=== PATIENT | male | born 1940 | race Caucasian/White ===

== ENCOUNTER → 2019-04-19 09:53 | Outpatient (POV) | payer MEDICARE, SELFPAY | PROVIDERS: Visit Provider Dermatology | DX: Z00.00 Encounter for general adult medical examination without abnormal findings (principal) ==

== ENCOUNTER → 2019-05-10 10:07 | Outpatient (POV) | payer MEDICARE, SELFPAY | PROVIDERS: Visit Provider Dermatology | DX: Z00.00 Encounter for general adult medical examination without abnormal findings (principal) ==

== ENCOUNTER → 2019-07-05 13:14 | Outpatient (POV) | payer MEDICARE, OTHER, SELFPAY | PROVIDERS: PCP Dermatology; Visit Provider Dermatology | DX: Z00.00 Encounter for general adult medical examination without abnormal findings (principal) ==

== ENCOUNTER 2021-06-20 09:45 | Emergency (ER) | payer MEDICARE, SELFPAY ==
[2021-06-20 09:46] VITALS: BP 146/86; PULSE 103; RESP 16; TEMP 36.5; O2SAT 98; BMI 21.1
--- NOTE | 2021-06-20 09:57 | CT_ITS ---
FINAL REPORT CLINICAL HISTORY: constipation FINDINGS: Technique: Axial images through the abdomen and pelvis were performed by computed tomography. This study was performed with techniques to keep radiation doses as low as reasonably achievable (ALARA). Individualized dose reduction techniques using automated exposure control or adjustment of mA and/or kV according to the patient's size were employed. Abdomen: Motion artifact is identified on many of the images. There is mild bibasilar scar or atelectasis. The gallbladder is not well-seen. The liver is normal in size and attenuation. The spleen is unremarkable. The pancreas is normal. The adrenals are normal. The aorta is normal in caliber. There are bilateral low-attenuation renal masses which cannot be accurately characterized without contrast, likely represent cysts. There are several right renal stones measuring up to 8 mm. No left renal stones are identified. There is moderate left hydronephrosis and hydroureter secondary to a 2 mm left UVJ stone. Note is made of moderate vascular calcification. Pelvis: The appendix is not identified. There is a large amount of stool throughout the colon. Multiple diverticula are seen in the sigmoid colon. The urinary bladder is unremarkable. There is no free fluid or adenopathy. IMPRESSION: Moderate left hydronephrosis and hydroureter secondary to an obstructing stone in the left UVJ. Right renal stones. Reviewed, Interpreted and Dictated by Dale Degroot III, MD Transcribed by Raeann Isaac Authenticated by Dale Degroot III, MD on 06/20/2021 10:50:58 AM [facility]
[2021-06-20 10:30] LABS: Basophils # 0.1 K/mm3 (0-0.2); Basophils % 0.6 % (0.1-2.0); Eosinophils # 0.1 K/mm3 (0.0-0.4); Hematocrit 39.9 % (42.0-52.0); Hemoglobin 12.4 g/dL (14.1-18.0); Lymphocytes # 1.2 K/mm3 (0.7-4.5); Lymphocytes % 11.2 % (10-50); Mean Corpuscular HGB Conc 31.1 g/dL (31.8-35.4); Mean Corpuscular Hemoglobin 32.8 pg (27.0-31.2); Mean Corpuscular Volume 105.6 fl (80-94); Mean Platelet Volume 8.3 fl (7.4-10.4); Monocytes # 0.8 K/mm3 (0.1-1.0); Monocytes % 7.8 % (1.7-9.3); Neutrophils # 8.3 K/mm3 (1.8-7.8); Neutrophils % 79.5 % (37.0-80.0); Platelet Count 349 K/mm3 (142-424); Red Blood Count 3.78 M/mm3 (4.60-6.20); Red Cell Distribution Width 13.1 % (11.5-17.5); White Blood Count 10.4 K/mm3 (4.8-10.8)
[2021-06-20 10:36] LABS: Chloride 99 mmol/L (98-107); Potassium 4.5 mmoL/L (3.5-5.1); Sodium 135 mmol/L (136-145)
[2021-06-20 10:38] LABS: Blood Urea Nitrogen 35 mg/dl (9-20); Creatinine Clearance Estimated 29 mL/min (50-200); Estimated Glomerular Filt Rate 31 ml/min (>60); GFR (African American) 37 ML/MIN (>60)
[2021-06-20 10:39] LABS: Alanine Aminotransferase 19 U/L (12-78); Albumin/Globulin Ratio 1.1 (1.1-1.8); Alkaline Phosphatase 107 U/L (38-126); Anion Gap 13.5 mEq/L (5-15); Aspartate Amino Transferase 27 U/L (17-59); Bilirubin,Total 0.7 mg/dl (0.2-1.3); Calcium 8.4 mg/dl (8.4-10.2); Carbon Dioxide 27 mmol/L (22.0-30.0); Globulin 3.7 g/dL (1.3-3.2); Glucose 104 mg/dl (74-100); Lipase 37 U/L (23-300); Total Protein,Serum 7.7 g/dl (6.3-8.2)
--- NOTE | 2021-06-20 10:51 | HMH.EDABDPAI ---
ED Disposition Clinical Impression: Kidney stone on left side Constipation Qualifiers: Constipation type: unspecified constipation type Qualified Code(s): K59.00 - Constipation, unspecified Disposition: Home, Self-Care Condition on Discharge: Good Instructions: DI for Kidney Stones Prescriptions: Hydrocod/Acet 5/325 mg [[place] 5/325mg tablet] 1 tab PO Q6HP PRN #7 tab PRN Reason: Moderate To Severe Pain Transmission Status: Sent to [facility] Docusate Sodium [Colace] 100 mg PO BID #20 cap Transmission Status: Pending to [facility] Tamsulosin HCl [Flomax 0.4mg capsule] 0.4 mg PO DAILY #10 cap Transmission Status: Pending to [facility] Referrals: Golden Bruce MD [Primary Care Provider] - - Critical Care Critical Care Time: No Attestation: On 06/20/21, the high probability of a clinically significant, sudden or life threatening deterioration of the following system(s) required my full and direct attention, intervention and personal management. The time I documented below is in addition to time spent performing reported procedures but includes the following listed in this critical care notation. Medical Decision Making - Medical Records Medical records reviewed: Yes: I reviewed the patient's medical records. - Brent Inquiry Pt receiving controlled substance: No Vital Signs: 06/20/21 09:46 06/20/21 11:58 Temperature 97.7 F Temperature Source Oral Pulse Rate 75 Pulse Rate [Radial] 103 H Respiratory Rate 16 Blood Pressure 159/89 H Blood Pressure [Right Arm] 146/86 H Blood Pressure Mean 109 Blood Pressure Mean [Right Arm] 106 Blood Pressure Position [Right Arm] Sitting 02 Sat by Pulse Oximetry 98 96 Oxygen Delivery Method Room Air Room Air - Lab Data Lab Results 06/20/21 10:15: WBC 10.4, RBC 3.78 L, Hgb 12.4 L, Hct 39.9 L, MCV 105.6 H, MCH 32.8 H, MCHC 31.1 L, RDW 13.1, Plt Count 349, MPV 8.3, Neut % (Auto) 79.5, Lymph % (Auto) 11.2, [place] % (Auto) 7.8, Eos % (Auto) 1.0, Baso % (Auto) 0.6, Neut # (Auto) 8.3 H, Lymph # (Auto) 1.2, [place] # (Auto) 0.8, Eos # (Auto) 0.1, Baso # (Auto) 0.1 06/20/21 10:15: Sodium 135 L, Potassium 4.5, Chloride 99, Carbon Dioxide 27, Anion Gap 13.5, BUN 35 H, Creatinine 2.10 H, Estimated Creat Clear 29, Estimated GFR 31 L, Est GFR ( Amer) 37 L, Glucose 104 H, Calcium 8.4, Total Bilirubin 0.7, AST 27, ALT 19, Alkaline Phosphatase 107, Total Protein 7.7, Albumin 4.0, Globulin 3.7 H, Albumin/Globulin Ratio 1.1, Lipase 37 06/20/21 11:20: Urine Color Yellow, Urine Appearance Clear, Urine pH 5.5, Ur Specific [place] 1.010, Urine Protein Negative, Urine Glucose (UA) Negative, Urine Ketones Negative, Urine Blood 1+, Urine Nitrate Negative, Urine Bilirubin Negative, Urine Urobilinogen 0.2, Ur Leukocyte Esterase Negative, Urine RBC Occasional, Urine WBC 3-5, Ur Squamous Epith Cells Occasional, Urine Bacteria Trace Result diagrams: 06/20/21 10:15 06/20/21 10:15 Orders (Tests/Meds): ED MEDICATIONS Discontinued Medications Generic Name Dose Route Start Last Admin Trade Name Freq PRN Reason Stop Dose Admin Sodium Chloride 1,000 mls @ 999 mls/hr 06/20/21 10:00 06/20/21 10:14 Sod Chlor 0.9% 1000ml Bag IV 06/20/21 11:00 999 mls/hr .Q1H1M NAYA Administration - CT Data CT Scan: Abdomen, Pelvis Time Received: 12:[address] Reviewed: Yes: I have reviewed the patient's CT results, I have viewed the radiologist's interpretation Findings Narrative: IMPRESSION: Moderate left hydronephrosis and hydroureter secondary to an obstructing stone in the left UVJ. Right renal stones. - Reevaluation(s) Time: 12:50 Reevaluation #1: On reevaluation, the patient is feeling much better. He does have evidence of a 2 mm kidney stone on the left side. Also some slight elevation in kidney function. We did provide fluids here. I explained to the patient that he needs to increase his oral intake. He will be discharged wit
[2021-06-20 11:31] LABS: Microscopic, Urine URINE MICROSCOPIC (MICROSCOPIC)
[2021-06-20 11:34] LABS: Appearance,Urine CLEAR (Clear); Bilirubin,Urine Negative (Negative); Blood, Urine 1+ (Negative); Color,Urine YELLOW (Yellow); Glucose,Urine (UA) Negative (Negative); Ketones,Urine Negative (Negative); Leukocyte Esterase,Urine Negative (Negative); Nitrate,Urine Negative (Negative); PH,Urine 5.5 (5.0-8.5); Protein,Urine Negative (Negative); Urobilinogen,Urine 0.2 EU/dl (0.2)
[2021-06-20 11:49] LABS: Bacteria,Urine Trace /lpf; RBC,Urine Occasional #/hpf (0-3); Squamous Epithelial Cell,Urine Occasional #/hpf (0-5)
--- NOTE | 2021-06-20 11:50 | PC.NURSE ---
updated pt family at in lobby at this time per their request
[2021-06-20 11:58] VITALS: BP 159/89; PULSE 75; O2SAT 96
[2021-06-20 12:15] VITALS: BP 147/76; PULSE 74; RESP 16
[2021-06-20 12:45] VITALS: BP 153/72; PULSE 68; RESP 16; O2SAT 99
[2021-06-20 14:46] VITALS: BP 135/74; PULSE 71; RESP 16; TEMP 36.6; O2SAT 96
== END 2021-06-20 14:48 | disposition home or self-care (01) ==
PROVIDERS: Emergency Provider Emergency Medicine; PCP Family Medicine
DX: N20.0 Calculus of kidney (principal); K59.00 Constipation, unspecified; F17.210 Nicotine dependence, cigarettes, uncomplicated; Z79.1 Long term (current) use of non-steroidal anti-inflammatories (NSAID); Z79.899 Other long term (current) drug therapy; Z88.7 Allergy status to serum and vaccine; Z85.828 Personal history of other malignant neoplasm of skin
CPT/HCPCS: 74176; 80053; 81001; 83690; 85025; 96361; 96365; 99284

== ENCOUNTER 2023-01-04 17:34 | Emergency (ER) | payer MEDICARE, SELFPAY ==
[2023-01-04] VITALS (7 sets, daily range): BP systolic 154–177; BP diastolic 61–80; PULSE 65–84; RESP 16–18; TEMP 36.6; O2SAT 98–99; BMI 19.8
--- NOTE | 2023-01-04 18:03 | HMH.EDGENADL ---
Discharge Plan Disposition Patient Disposition: Home, Self-Care Prescriptions Prescriptions: No Action hydrocodone-acetaminophen 1 TAB tablet 1 tab PO Q6HP PRN (Reason: Moderate To Severe Pain) Qty: 7 0RF tamsulosin 0.4 MG capsule 0.4 mg PO DAILY Qty: 10 0RF docusate sodium 100 MG capsule 100 mg PO BID Qty: 20 0RF Referrals Follow up/Referrals: Janet Arzola APRN [Primary Care Provider] - See instructions Activity Restrictions/Add. Instructions Additional Instructions/Restrictions: Turn with any other concerns. No evidence of any emergent medical condition electrolyte abnormality or renal failure secondary to dehydration today. Please push fluids by mouth at home. Clinical Impressions Clinical Impression: Dehydration Discharge ED Provider: Rohan Grover General Adult HPI General Chief complaint: Weakness Stated complaint: Weakness Time Seen by Provider: 01/04/23 17:56 History of Present Illness HPI narrative: Patient is an 82-year-old male presenting today with his sister for concern for dehydration. They state that a friend who is visiting him who is a nurse told him that he looked dehydrated. He has not had any nausea vomiting diarrhea no changes in p.o. intake but states he chronically takes in very small amounts of water. No changes in his urine output is still having good urine output. His his extremities are always cool and dry. Related Data Previous Rx's Medication Instructions Recorded docusate sodium 100 mg capsule 100 mg PO BID #20 caps 06/20/21 hydrocodone 5 mg-acetaminophen 325 1 tab PO Q6HP PRN Moderate To 06/20/21 mg tablet Severe Pain #7 tabs tamsulosin 0.4 mg capsule 0.4 mg PO DAILY #10 caps 06/20/21 Allergies Allergy/AdvReac Type Severity Reaction Status Date / Time Tetanus Vaccines and Toxoid Allergy Verified 01/14/21 11:52 [facility] Disclaimer: The information contained in this section may have been updated after the patient was seen, as this information can be updated by other users. Social History Smoking Status: Current every day smoker tobacco type: cigarettes packs per day: 1 second hand exposure: No alcohol intake: never current occupational status: retired Travel in the last 8 weeks: None housing: house current occupational exposures/hazards: No ROS Obtained: Yes All systems reviewed & no additional complaints except as documented Physical Exam General General appearance: alert Respiratory Respiratory exam: Present normal lung sounds bilaterally Cardiovascular Cardiovascular exam: Present other (Poor skin turgor delayed capillary refill mucous membranes are dry) Neurological Exam Neurological exam: Present alert and oriented X3 Medical Decision Making Brent Inquiry Pt receiving controlled substance: No Vital Signs: 01/04/23 17:36 01/04/23 17:43 01/04/23 18:01 Temperature 98 F Temperature Source Oral Pulse Rate 74 78 Pulse Rate [Right] 84 Respiratory Rate 17 16 17 Blood Pressure 162/80 H 155/61 H Blood Pressure [Right Arm] 162/80 H Blood Pressure Mean 102 92 Blood Pressure Mean [Right Arm] 107 Blood Pressure Source [Right Arm] Automatic Cuff Blood Pressure Position [Right Arm] Sitting 02 Sat by Pulse Oximetry 99 99 99 Oxygen Delivery Method Room Air 01/04/23 18:30 01/04/23 19:02 01/04/23 19:31 Temperature Temperature Source Pulse Rate 65 74 67 Pulse Rate [Right] Respiratory Rate 16 16 Blood Pressure 159/73 H 177/78 H 154/67 H Blood Pressure [Right Arm] Blood Pressure Mean 91 94 96 Blood Pressure Mean [Right Arm] Blood Pressure Source [Right Arm] Blood Pressure Position [Right Arm] 02 Sat by Pulse Oximetry 99 98 98 Oxygen Delivery Method Room Air Lab Data Lab results reviewed: Yes I reviewed the patient's lab results. Lab Results 01/04/23 18:27: WBC 6.7, RBC 4.49 L, Hgb 13.9 L, Hct 45.7, MCV 101.8 H, MCH 31.0, MCHC 30.4 L, RDW 13.5, Plt Count 2
[2023-01-04 18:36] LABS: Basophils % 0.6 % (0.1-2.0); Eosinophils # 0.1 K/mm3 (0.0-0.4); Eosinophils % 1.8 % (0.1-12.0); Hematocrit 45.7 % (42.0-52.0); Hemoglobin 13.9 g/dL (14.1-18.0); Lymphocytes # 1.1 K/mm3 (0.7-4.5); Lymphocytes % 15.9 % (10-50); Mean Corpuscular HGB Conc 30.4 g/dL (31.8-35.4); Mean Corpuscular Volume 101.8 fl (80-94); Mean Platelet Volume 7.8 fl (7.4-10.4); Monocytes # 0.5 K/mm3 (0.1-1.0); Neutrophils % 74.7 % (37.0-80.0); Platelet Count 206 K/mm3 (142-424); Red Blood Count 4.49 M/mm3 (4.60-6.20); Red Cell Distribution Width 13.5 % (11.5-17.5); White Blood Count 6.7 K/mm3 (4.8-10.8)
[2023-01-04 18:41] LABS: Chloride 104 mmol/L (98-107); Sodium 142 mmol/L (136-145)
[2023-01-04 18:42] LABS: Potassium 4.6 mmoL/L (3.5-5.1)
[2023-01-04 18:44] LABS: Alanine Aminotransferase 24 U/L (12-78); Alkaline Phosphatase 92 U/L (38-126); Aspartate Amino Transferase 33 U/L (17-59); Bilirubin,Total 0.5 mg/dl (0.2-1.3); Blood Urea Nitrogen 27 mg/dl (9-20); Creatinine Clearance Estimated 55 mL/min (50-200); Estimated Glomerular Filt Rate 72 ml/min (>60); GFR (African American) 87 ML/MIN (>60)
[2023-01-04 18:45] LABS: Albumin Level 4.1 g/dl (3.5-5.0); Albumin/Globulin Ratio 1.1 (1.1-1.8); Anion Gap 14.6 mEq/L (5-15); Calcium 9.3 mg/dl (8.4-10.2); Carbon Dioxide 28 mmol/L (22.0-30.0); Globulin 3.9 g/dL (1.3-3.2); Glucose 92 mg/dl (74-100)
== END 2023-01-04 20:09 | disposition home or self-care (01) ==
PROVIDERS: Emergency Provider Student in an Organized Health Care Education/Training Program; PCP Nurse Practitioner Family
DX: E86.0 Dehydration (principal); R53.1 Weakness; F17.210 Nicotine dependence, cigarettes, uncomplicated
CPT/HCPCS: 36415; 80053; 85025; 99284

== ENCOUNTER 2023-01-21 10:37 | Emergency (ER) | payer MEDICARE, SELFPAY ==
[2023-01-21 11:00] VITALS: BP 112/67; PULSE 89; RESP 18; TEMP 36.6; O2SAT 98; BMI 15.0
--- NOTE | 2023-01-21 11:12 | EXP.UTC ---
Discharge Plan Disposition Patient Disposition: Home, Self-Care Condition: Good Prescriptions Prescriptions: No Action hydrocodone-acetaminophen 1 TAB tablet 1 tab PO Q6HP PRN (Reason: Moderate To Severe Pain) Qty: 7 0RF tamsulosin 0.4 MG capsule 0.4 mg PO DAILY Qty: 10 0RF docusate sodium 100 MG capsule 100 mg PO BID Qty: 20 0RF Referrals Follow up/Referrals: Janet Arzola APRN [Primary Care Provider] - See instructions Activity Restrictions/Add. Instructions Additional Instructions/Restrictions: Suture instructions: ?You have required stitches today. Please read the following instructions so you know how to care for them: ?1. Keep wound area dry for the first 24 hours. 2?? May clean gently with mild soap and water, after 48 hours to prevent crusting over suture knots. 3. You may shower if your provider gives permission but do not take a bath until the skin is healed.. 4. Never leave a wet dressing or Band-Aid on your stitches as this allows bacteria to reach the area and may cause infection. Band-aids can cause the wound to sweat and not recommended to wear for long periods of time Watch for signs of infection: ? Increasing redness, tenderness or warmth around the suture site ? Unusual swelling around the site ? Appearance of pus around each suture or any red streaks ? Fever If you develop any of the above signs or symptoms of infection, Follow up with Family Physician immediately 5. Suture removal in _10-12___days 6. Return to [facility] or follow up with family doctor for removal. This can be done by any medical provider dur?ing regular hours on Thursday through Thursday, by appointment. Clinical Impressions Clinical Impression: Laceration Instructions Patient Instructions: DI for Laceration Repair, DI for Laceration Repair -- Simple Discharge ED Provider: Irene Rizo [facility] [place], [place] HPI General Stated complaint: AO10/4@home, Lt hand lac Mode of Arrival: Ambulatory Source of Information: Patient and Relative Limitations: No Limitations Time Seen by Provider: 01/21/23 11:12 Description of Symptoms (Recalled from Triage Doc. by RN): PATIENT C/O LACERATION TO LEFT FIRST KNUCKLE AFTER CUTTING IT ON A GEOLOGICAL MANAGER THIS MORNING HEENT Symptoms (Recalled from RN notes): No Resp Symptoms (Recalled from RN notes): No Skin Symptoms (Recalled from RN notes): Yes MS Symptoms (Recalled from RN notes): No Functional Status (Recalled from RN notes): WNL History of Present Illness Provider Complaint: Patient states that he was using a terrazzo grinder this morning when it slipped and hit him in his left knuckle area causing laceration States that he is still able to bend finger and make a fist but was worried that it wouldnt heal right if he didnt come in and get some stitches Related Data Previous Rx's Medication Instructions Recorded docusate sodium 100 mg capsule 100 mg PO BID #20 caps 06/20/21 hydrocodone 5 mg-acetaminophen 325 1 tab PO Q6HP PRN Moderate To 06/20/21 mg tablet Severe Pain #7 tabs tamsulosin 0.4 mg capsule 0.4 mg PO DAILY #10 caps 06/20/21 Allergies Allergy/AdvReac Type Severity Reaction Status Date / Time Tetanus Vaccines and Toxoid Allergy Verified 01/14/21 11:52 Worker's Comp Is this a Worker's Comp case?: No [facility] Disclaimer: The information contained in this section may have been updated after the patient was seen, as this information can be updated by other users. Social History Smoking Status: Current every day smoker tobacco type: cigarettes packs per day: 1 second hand exposure: No alcohol intake: never current occupational status: retired Travel in the last 8 weeks: None housing: house current occupational exposures/hazards: No ROS Obtained: Yes All systems reviewed & no additional complaints except as documented and Yes Systems reviewed as appropriate & no additional complaints except as documented Constitutional Constitutional: Reports system
--- NOTE | 2023-01-21 11:16 | XR_ITS ---
FINAL REPORT CLINICAL HISTORY: LAC TO KNUCKLE left hand COMPARISON: None FINDINGS: LEFT HAND: 3 views of the left hand were obtained. There is no acute fracture or dislocation. Visualized joint spaces are normally aligned. There is a presumed bandage at the dorsal aspect of the hand. There is dorsal hand soft tissue swelling. IMPRESSION: Soft tissue swelling without acute bony abnormality. Reviewed, Interpreted and Dictated by Dale Degroot III, MD Transcribed by Kristi Vinson Authenticated and [facility]
[2023-01-21 12:08] VITALS: BP 112/67; PULSE 89; RESP 18; TEMP 36.6; O2SAT 98
== END 2023-01-21 12:10 | disposition home or self-care (01) ==
PROVIDERS: Emergency Provider Nurse Practitioner; PCP Nurse Practitioner Family
DX: S61.412A Laceration without foreign body of left hand, initial encounter (principal); W31.1XXA Contact with metalworking machines, initial encounter; F17.210 Nicotine dependence, cigarettes, uncomplicated
CPT/HCPCS: 12001; 73130; 99204; 99213; G0463

== ENCOUNTER 2023-01-30 09:21 | Emergency (ER) | payer MEDICARE, OTHER, SELFPAY ==
[2023-01-30 09:40] VITALS: BP 119/76; PULSE 76; RESP 18; TEMP 36.6; O2SAT 97; BMI 17.2
[2023-01-30 09:45] VITALS: BP 119/76; PULSE 76; RESP 18; TEMP 36.6; O2SAT 97
== END 2023-01-30 09:48 | disposition home or self-care (01) ==
LOC: UTC 09:24
PROVIDERS: Emergency Provider Nurse Practitioner Family; PCP Nurse Practitioner Family
DX: Z48.02 Encounter for removal of sutures (principal); S61.421A Laceration with foreign body of right hand, initial encounter

== ENCOUNTER 2023-03-21 17:43 | Emergency (ER) | payer MEDICARE, SELFPAY ==
[2023-03-21 17:45] VITALS: BP 170/74; PULSE 68; RESP 16; TEMP 36.1; O2SAT 96; BMI 19.8
--- NOTE | 2023-03-21 18:00 | CT_ITS ---
PROCEDURE INFORMATION: Exam: CT Abdomen And Pelvis With Contrast Exam date and time: 03/21/2023 6:27 PM Age: 82 years old Clinical indication: Abdominal pain; Localized; Right upper quadrant (ruq); Additional info: Ruq/rlq abd pain TECHNIQUE: Imaging protocol: Computed tomography of the abdomen and pelvis with contrast. Radiation optimization: All CT scans at this facility use at least one of these dose optimization techniques: automated exposure control; mA and/or kV adjustment per patient size (includes targeted exams where dose is matched to clinical indication); or iterative reconstruction. Contrast material: ISOVUE; Contrast volume: 75 ml; Contrast route: IV; REPORTING DATA: Count of CT and Cardiac NM exams in prior 12 months: This patient has received 0 known CTs and 0 known cardiac nuclear medicine studies in the 12 months prior to the current study. COMPARISON: CT ABDOMEN PELVIS WO CON 06/20/2021 10:20 AM FINDINGS: Liver: Normal. No mass. Gallbladder and bile ducts: Normal. No calcified stones. No ductal dilation. Pancreas: Normal. No ductal dilation. Spleen: Normal. No splenomegaly. Adrenal glands: Normal. No mass. Kidneys and ureters: Simple appearing bilateral renal cortical cysts, the largest measuring 3.9 cm in the left kidney. No solid renal mass. Mild right hydronephrosis. Small to moderate-sized calyceal stones noted in the right kidney. On series 3, image 97, there is a 3 mm calcification in the area of the distal right ureter raising concern for distal ureteral stone. Mild right perinephric edema. Stomach and bowel: Unremarkable. No obstruction. No mucosal thickening. Appendix: No evidence of appendicitis. Intraperitoneal space: Unremarkable. No free air. No significant fluid collection. Vasculature: Dense atherosclerotic calcification throughout the aorta and iliac arteries. No evidence of aneurysm or dissection. Lymph nodes: Unremarkable. No enlarged lymph nodes. Urinary bladder: Unremarkable as visualized. Reproductive: Unremarkable as visualized. Bones/joints: Unremarkable. No acute fracture. Soft tissues: Unremarkable. IMPRESSION: Findings suggesting 3 mm stone in the distal right ureter producing mild right hydronephrosis. Moderate right nephrolithiasis also noted. COMMENTS: Consistent with the [employer]'s Incidental Findings Committee white paper (J Am Josey Radiol 2018): Any incidental renal lesion less than 1 cm or classified as too small to characterize, or any incidental cystic renal lesion characterized as simple-appearing, is likely benign. No follow-up imaging is recommended for these lesions per consensus recommendations based on imaging criteria.
--- NOTE | 2023-03-21 18:02 | XR_ITS ---
PROCEDURE INFORMATION: Exam: XR Chest Exam date and time: 03/21/2023 6:18 PM Age: 82 years old Clinical indication: Dyspnea TECHNIQUE: Imaging protocol: Radiologic exam of the chest. Views: 1 view. COMPARISON: CT ABDOMEN PELVIS WO CON 06/20/2021 10:20 AM FINDINGS: Lungs: See Bones/joints finding. Pleural spaces: Unremarkable. No pleural effusion. No pneumothorax. Heart/Mediastinum: Unremarkable. No cardiomegaly. Bones/joints: Mild degenerative changes of the thoracic spine. No acute fracture. No and mild hazy opacity in the right mid lung. Left lung appears clear. IMPRESSION: Mild nonspecific right mid lung infiltrate
--- NOTE | 2023-03-21 18:03 | HMH.EDGENADL ---
Discharge Plan Disposition Patient Disposition: Home, Self-Care Prescriptions Prescriptions: New hydrocodone-acetaminophen 5-325 mg tablet 1 tab PO Q6H PRN (Reason: pain) 3 Days Qty: 12 0RF tamsulosin [Flomax] 0.4 mg capsule 0.4 mg PO DAILY 7 Days Qty: 7 0RF ibuprofen 600 mg tablet 600 mg PO Q8H PRN (Reason: pain) 7 Days Qty: 21 0RF ondansetron 4 mg tablet,disintegrating 4 mg PO Q6H PRN (Reason: nausea and vomiting) 5 Days Qty: 20 0RF Referrals Follow up/Referrals: Janet Arzola APRN [Primary Care Provider] - See instructions Activity Restrictions/Add. Instructions Additional Instructions/Restrictions: You have a 3 mm kidney stone that is almost out. Please return with intractable nausea vomiting pain or high fevers. Otherwise this should pass on its own. Clinical Impressions Clinical Impression: Hydronephrosis concurrent with and due to calculi of kidney and ureter Instructions Patient Instructions: DI for Low Back Pain Discharge ED Provider: Rohan Grover General Adult HPI General Chief complaint: Back Pain/Injury Stated complaint: abd pain radiating to back Time Seen by Provider: 03/21/23 17:54 History of Present Illness HPI narrative: Patient is an 82-year-old male presents today with right flank pain. He does not regularly go to the doctor and he has no medical problems that he is aware of is not on any medications. States he was working on his pond trying to siphon water out of the pond climbing up and down on a ladder and may have strained his side he states. He denies any past medical history however he has a documented history of a kidney stone on the left side. States the pains been intermittent. Denies any chest pain shortness of breath respiratory symptoms fevers chills blood in his urine or any other complaints. Related Data Previous Rx's Medication Instructions Recorded hydrocodone 5 mg-acetaminophen 325 1 tab PO Q6H PRN pain 3 days #12 03/21/23 mg tablet tabs ibuprofen 600 mg tablet 600 mg PO Q8H PRN pain 7 days #21 03/21/23 tabs ondansetron 4 mg disintegrating 4 mg PO Q6H PRN nausea and 03/21/23 tablet vomiting 5 days #20 tabs tamsulosin 0.4 mg capsule (Flomax) 0.4 mg PO DAILY 7 days #7 caps 03/21/23 Allergies Allergy/AdvReac Type Severity Reaction Status Date / Time Tetanus Vaccines and Toxoid Allergy Verified 03/21/23 18:40 [facility] Disclaimer: The information contained in this section may have been updated after the patient was seen, as this information can be updated by other users. Social History Smoking Status: Current every day smoker tobacco type: cigarettes packs per day: 1 second hand exposure: No alcohol intake: never current occupational status: retired Travel in the last 8 weeks: None housing: house current occupational exposures/hazards: No ROS Obtained: Yes All systems reviewed & no additional complaints except as documented Physical Exam General General appearance: cachectic Respiratory Respiratory exam: Present normal lung sounds bilaterally Cardiovascular Cardiovascular exam: Present regular rate Abdominal Exam Abdominal exam: Present soft and tenderness (Right upper quadrant lower quadrant tenderness palpation no rebound or guarding) Neurological Exam Neurological exam: Present alert and oriented X3 Medical Decision Making Brent Inquiry Pt receiving controlled substance: No Vital Signs: 03/21/23 17:45 Temperature 97.0 F L Temperature Source Axillary Pulse Rate [Left Radial] 68 Respiratory Rate 16 Blood Pressure [Right Arm] 170/74 H Blood Pressure Mean [Right Arm] 106 Blood Pressure Source [Right Arm] Automatic Cuff Blood Pressure Position [Right Arm] Sitting 02 Sat by Pulse Oximetry 96 Oxygen Delivery Method Room Air Lab Data Lab results reviewed: Yes I reviewed the patient's lab results. Lab Results 03/21/23 17:50: Urine Color Yellow, Urine Appearance Clear, Urine pH 6.5, Ur
[2023-03-21 18:07] LABS: Microscopic, Urine URINE MICROSCOPIC (MICROSCOPIC)
[2023-03-21 18:11] LABS: Basophils % 0.5 % (0.1-2.0); Eosinophils # 0.1 K/mm3 (0.0-0.4); Eosinophils % 1.2 % (0.1-12.0); Hematocrit 43.5 % (42.0-52.0); Hemoglobin 14.3 g/dL (14.1-18.0); Lymphocytes % 13.6 % (10-50); Mean Corpuscular HGB Conc 32.8 g/dL (31.8-35.4); Mean Corpuscular Hemoglobin 33.1 pg (27.0-31.2); Mean Corpuscular Volume 100.9 fl (80-94); Monocytes # 0.4 K/mm3 (0.1-1.0); Monocytes % 5.8 % (1.7-9.3); Neutrophils # 5.9 K/mm3 (1.8-7.8); Platelet Count 215 K/mm3 (142-424); Red Blood Count 4.31 M/mm3 (4.60-6.20); Red Cell Distribution Width 13.2 % (11.5-17.5); White Blood Count 7.5 K/mm3 (4.8-10.8)
[2023-03-21 18:13] LABS: Chloride 102 mmol/L (98-107); Potassium 4.8 mmoL/L (3.5-5.1); Sodium 138 mmol/L (136-145)
[2023-03-21 18:14] LABS: Appearance,Urine CLEAR (Clear); Bilirubin,Urine Negative (Negative); Blood, Urine TRACE-I (Negative); Color,Urine YELLOW (Yellow); Glucose,Urine (UA) Negative (Negative); Ketones,Urine TRACE (Negative); Leukocyte Esterase,Urine Negative (Negative); Nitrate,Urine Negative (Negative); PH,Urine 6.5 (5.0-8.5); Protein,Urine Negative (Negative); Specific Gravity, Urine 1.015 (1.005-1.030); Urobilinogen,Urine 0.2 EU/dl (0.2)
[2023-03-21 18:15] LABS: Alanine Aminotransferase 24 U/L (12-78); Alkaline Phosphatase 101 U/L (38-126); Aspartate Amino Transferase 35 U/L (17-59); Bilirubin,Total 0.5 mg/dl (0.2-1.3); Blood Urea Nitrogen 29 mg/dl (9-20); Creatinine Clearance Estimated 39 mL/min (50-200); Estimated Glomerular Filt Rate 49 ml/min (>60); GFR (African American) 59 ML/MIN (>60)
[2023-03-21 18:16] LABS: Albumin Level 4.5 g/dl (3.5-5.0); Albumin/Globulin Ratio 1.2 (1.1-1.8); Anion Gap 11.8 mEq/L (5-15); Calcium 9.2 mg/dl (8.4-10.2); Carbon Dioxide 29 mmol/L (22.0-30.0); Globulin 3.8 g/dL (1.3-3.2); Glucose 128 mg/dl (74-100); Lipase 61 U/L (23-300); Total Protein,Serum 8.3 g/dl (6.3-8.2)
--- NOTE | 2023-03-21 18:33 | PC.NURSE ---
RETURNED FROM CT
[2023-03-21 18:36] LABS: Squamous Epithelial Cell,Urine Occasional #/hpf (0-5)
--- NOTE | 2023-03-21 19:03 | PC.NURSE ---
Rounded on pt. No needs voiced. Visitor remains at BS.
[2023-03-21 19:34] VITALS: BP 172/82; PULSE 81; RESP 18; TEMP 36.6; O2SAT 97
== END 2023-03-21 19:35 | disposition home or self-care (01) ==
PROVIDERS: Emergency Provider Student in an Organized Health Care Education/Training Program; PCP Nurse Practitioner Family
DX: N13.2 Hydronephrosis with renal and ureteral calculous obstruction (principal); R10.9 Unspecified abdominal pain; F17.210 Nicotine dependence, cigarettes, uncomplicated
CPT/HCPCS: 71045; 74177; 80053; 81001; 83690; 85025; 96374; 99285; Q9967

== ENCOUNTER 2023-08-30 17:24 | Emergency (ER) | payer MEDICARE, SELFPAY ==
[2023-08-30 17:40] VITALS: BP 157/84; PULSE 78; RESP 20; TEMP 36.4; O2SAT 97; BMI 15.3
--- NOTE | 2023-08-30 18:03 | ED_ITS ---
Discharge Plan Disposition Patient Disposition: Home, Self-Care Condition: Good Prescriptions Prescriptions: No Action No Known Home Medications Referrals Follow up/Referrals: Janet Arzola APRN [Primary Care Provider] - See instructions Activity Restrictions/Add. Instructions Additional Instructions/Restrictions: Use muscle rub on area to see if it helps with pain GO straight to ER if pain return or worsens Follow up with your Family Doctor if you do not want to go to the ER Clinical Impressions Clinical Impression: Right flank pain Instructions Patient Instructions: DI for Flank Pain, Ibuprofen Discharge ED Provider: Irene Rizo Yaneli [facility] HPI General Stated complaint: back pain thinks it is stones Mode of Arrival: Ambulatory Source of Information: Patient Limitations: No Limitations Time Seen by Provider: 08/30/23 18:03 Description of Symptoms (Recalled from Triage Doc. by RN): PATIENT C/O PAIN TO RIGHT SIDE WAIST/RIB AREA X 2 DAYS HEENT Symptoms (Recalled from RN notes): No Resp Symptoms (Recalled from RN notes): No Skin Symptoms (Recalled from RN notes): No MS Symptoms (Recalled from RN notes): No Functional Status (Recalled from RN notes): WNL History of Present Illness Provider Complaint: Patient states that he pulled himself up on the tractor and thinks he pulled something in his right lower back Family Member states that he was dx with Kidney stone in Mar but he states it isnt hurting like that right now and the pain has eased off Denies burning with urination, denies radiation of pain, denies loss of control of bowel or bladder Related Data Home Medications Medication Instructions Recorded Confirmed No Known Home Medications 08/30/23 08/30/23 Allergies Allergy/AdvReac Type Severity Reaction Status Date / Time Tetanus Vaccines and Toxoid Allergy Verified 03/21/23 18:40 Worker's Comp Is this a Worker's Comp case?: No [facility] Disclaimer: The information contained in this section may have been updated after the patient was seen, as this information can be updated by other users. Medical History (Updated 08/30/23 @ 18:22 by Irene Rizo APRN) Kidney stone Social History Smoking Status: Current every day smoker tobacco type: cigarettes packs per day: 1 second hand exposure: No alcohol intake: never current occupational status: retired Travel in the last 8 weeks: None housing: house current occupational exposures/hazards: No ROS Obtained: Yes All systems reviewed & no additional complaints except as documented and Yes Systems reviewed as appropriate & no additional complaints except as documented Constitutional Constitutional: Reports system reviewed and no additional complaints, except as documented, Reports as per HPI, Denies body ache, Denies chills and Denies fever(s) ENT Ears, Nose, Mouth, and Throat: Reports system reviewed and no additional complaints, except as documented and Reports as per HPI Cardiovascular Cardiovascular: Reports system reviewed and no additional complaints, except as documented and Reports as per HPI Respiratory Respiratory: Reports system reviewed and no additional complaints, except as documented and Reports as per HPI Gastrointestinal Gastrointestingal: Reports system reviewed and no additional complaints, except as documented and as per HPI; Denies abdominal pain Genitourinary Male Genitourinary: Reports system reviewed and no additional complaints, except as documented, Reports as per HPI and Reports flank pain (right) Musculoskeletal Musculoskeletal: Reports system reviewed and no additional complaints, except as documented, Reports as per HPI and Reports back pain (right flank area around waist line on right side) Physical Exam General General appearance: alert and in no apparent distress Respiratory Respiratory exam: Present normal lung sounds bilaterally; Absent respiratory distress or wheezes Cardiovascular Cardiovascular exam: Present regular rate, normal rhythm and normal heart sounds Back Exam Back exam: Present tenderness Back 1 view image: 2 1. patient reports pain and some tenderness with palpation denies known injury, reports feels like he pulled something pulling himself up on tractor, denies radiation of pain, denies numbness, Denies loss of control of bowel or bladder Neurological Exam Neurological exam: Present alert, oriented X3 and normal gait Medical Decision Making Brent Inquiry Pt receiving controlled substance: No Brent was queried for this patient: No Vital Signs: 08/30/23 17:40 Temperature 97.6 F Temperature Source Oral Pulse Rate [Right Brachial] 78 Respiratory Rate 20 Blood Pressure [Right Arm] 157/84 H Blood Pressure Mean [Right Arm] 108 Blood Pressure Source [Right Arm] Automatic Cuff Blood Pressure Position [Right Arm] Sitting 02 Sat by Pulse Oximetry 97 Oxygen Delivery Method Room Air Lab Data Lab results reviewed: Yes I reviewed the patient's lab results. Medical Decision Narrative: UA completed Patient has a hx of Kidney stones in a CT he had in Mar showed kidney stone on right side that he is unsure if he has passed or not Discussed with patient that the pain tonight is in the same area and recommended transfer to the ED for testing and/or Imaging and he declined States it has eased off now and he is going home Patient educated on risks and he still declined states he feels better he is going home, Discussed muscle relaxers and he declined also said he had muscle rub at home he would use that and would come back if the pain return or got worse Family with patient and given strict return precautions Again spoke with patient about transfer to the ED or imaging and he declined states he is going home
[2023-08-30 18:22] VITALS: BP 157/84; PULSE 78; RESP 20; TEMP 36.4; O2SAT 97
[2023-08-30 20:17] LABS: Apearance,Urine Clear (Clear); Bilirubin,Urine Negative (Negative); Blood, Urine 1+ (Negative); Color,Urine Yellow (Yellow); Glucose,Urine (UA) Negative (Negative); Ketones,Urine Negative (Negative); PH,Urine 5.5 (5.0-8.5); Protein,Urine Negative (Negative); Specific Gravity, Urine >= 1.030 (1.005-1.030); UTC Leukocyte Esterase,Urine Negative (Negative); UTC Nitrate,Urine Negative (Negative); Urobilinogen,Urine 0.2 EU/dl (0.2)
== END 2023-08-30 18:25 | disposition home or self-care (01) ==
PROVIDERS: Emergency Provider Nurse Practitioner; PCP Nurse Practitioner Family
DX: M54.59 Other low back pain (principal); R10.32 Left lower quadrant pain; Z87.442 Personal history of urinary calculi; F17.210 Nicotine dependence, cigarettes, uncomplicated
CPT/HCPCS: 81003; 99212; 99214; G0463